=== PATIENT | female | born 1975 | race Caucasian/White ===

== ENCOUNTER 2021-07-08 14:10 | Outpatient (CLI) | payer OTHER, SELFPAY ==
--- NOTE | 2021-07-08 14:30 | ECG_ITS ---
Measurements Intervals Ridge Rate: 81 P: 53 KS: 143 QRS: 28 QRSD: 85 T: 35 QT: 359 QTc: 419 Interpretive Statements SINUS RHYTHM BASELINE ARTIFACT- I, II, III, AVR, AVL, AVF NORMAL ECG Electronically Signed On 07-08-2021 14:29:37 CDT by Butch Schmidt D.O.
[2021-07-08 14:44] LABS: Hemoglobin 13.3 g/dL (12.0-15.0)
[2021-07-08 14:57] LABS: Anion Gap 11 mmol/L (8-16); Blood Urea Nitrogen 11 mg/dL (7-17); Calcium 9.9 mg/dL (8.4-10.2); Carbon Dioxide 26 mmol/L (22-30); Chloride 101 mmol/L (98-107); Estimated Glomerular Filt Rate > 60; Glucose 115 mg/dL (65-110); Potassium 4.1 mmol/L (3.4-5.0); Sodium 138 mmol/L (137-145)
== END 2021-07-08 14:11 | disposition home or self-care (01) ==
LOC: ANHSURGERY 14:13
PROVIDERS: Anesthesiology; PCP Nurse Practitioner Family; Visit Provider Obstetrics & Gynecology
DX: Z01.818 Encounter for other preprocedural examination (principal); E78.5 Hyperlipidemia, unspecified; I10 Essential (primary) hypertension; D64.9 Anemia, unspecified
CPT/HCPCS: 36415; 80048; 85014; 85018; 93005

== ENCOUNTER 2021-07-11 00:17 | Day surgery (SDC) | payer OTHER, SELFPAY ==
[2021-07-06 13:20] VITALS: BMI 40.1
--- NOTE | 2021-07-08 14:09 | PM.IMHP ---
H&P: HPI History of Present Illness Date/Time: 07/08/21 14:09 periods have been lasting 2 weeks to 2 months for past year or so. She has cramping but no other pelvic pain. h/o anemia but no blood transfusions. Not sexually active Chief Complaint: Menometrorrhagia, fibroids Review of Systems Review of Systems: All systems reviewed & are unremarkable except as noted in HPI and below PMFSH Past Medical History Medical History Anxiety Asthma Diabetes mellitus Type 2 Hypertension Hypothyroidism Surgical History Surgical History H/O right wrist surgery 07/2020, carpal tunnel surgery History of tonsillectomy and adenoidectomy Family History Family History Father Hypertension Diabetes mellitus Mother Diabetes mellitus Hypertension Social History Social History Smoking packs per day: 0.5 Smoking cigarettes per day: 10.0 Years smoked: 24 Smoking pack-years: 12.00 Smoking status: Current every day smoker Tobacco type: cigarettes Alcohol intake: never Substance use: never Substance use type: does not use Spiritual care concerns: No Meds Home Medications and Allergies Home Medications Medication Instructions Recorded Confirmed Type albuterol sulfate 90 mcg/actuation 1 puff INHALATION Q4H PRN 05/25/21 07/06/21 History aerosol inhaler amlodipine 10 mg tablet 10 mg PO DAILY 05/25/21 07/06/21 History aspirin 81 mg tablet,delayed 81 mg PO DAILY 05/25/21 07/06/21 History release cholecalciferol (vitamin D3) 125 125 mcg PO DAILY 05/25/21 07/06/21 History mcg (5,000 unit) capsule empagliflozin 10 mg tablet 10 mg PO DAILY 05/25/21 07/06/21 History ferrous sulfate 325 mg (65 mg 325 mg PO DAILY 05/25/21 07/06/21 History iron) tablet glimepiride 4 mg tablet 4 mg PO QAM 05/25/21 07/06/21 History ibuprofen 800 mg tablet 800 mg PO Q8H PRN tablet 05/25/21 07/06/21 History levothyroxine 175 mcg capsule 175 mcg PO DAILY 05/25/21 07/06/21 History loratadine 10 mg capsule 10 mg PO DAILY 05/25/21 07/06/21 History losartan 50 mg tablet 50 mg PO DAILY 05/25/21 07/06/21 History meloxicam 15 mg tablet 15 mg PO DAILY 05/25/21 07/06/21 History metformin 1,000 mg tablet 1,000 mg PO BID 05/25/21 07/06/21 History norethindrone (contraceptive) 0.35 0.35 mg PO DAILY #84 tablet 05/25/21 07/06/21 Rx mg tablet omeprazole 40 mg capsule,delayed 40 mg PO DAILY 05/25/21 07/06/21 History release tizanidine 2 mg capsule 4 mg PO QHS 05/25/21 07/06/21 History venlafaxine 37.5 mg tablet 37.5 mg PO DAILY 05/25/21 07/06/21 History oxygen-air delivery systems 06/30/21 07/06/21 History hydroxyzine pamoate 50 mg PO HS 07/06/21 07/06/21 History pravastatin 20 mg PO HS 07/06/21 07/06/21 History Allergies Allergy/AdvReac Type Severity Reaction Status Date / Time lisinopril AdvReac Intermediate dry cough Verified 07/06/21 13:19 codeine AdvReac Mild upset Verified 07/06/21 13:19 stomach hydrocodone AdvReac Mild NAUSEA, Verified 07/06/21 13:19 upset stomach tramadol AdvReac upset Verified 07/06/21 13:19 stomach Exam Const: General: healthy appearing, no acute distress, alert and awake Resp: Auscultation: clear to auscultation bilaterally Cardio: Rate: regular rate Rhythm: regular rhythm GI: Inspection: non-distended GI Palp: Yes Soft to palpation and No Tenderness to palpation present (GI) : Bimanual exam- vagina & uterus: normal bimanual exam, uterine size normal, uterine mobility normal, non-tender and soft Bimanual Exam- Adnexa, other: normal adnexae, no masses and No adnexal tenderness Extrem: General: no pedal edema and no calf tenderness Psych: Mental Status: mental status grossly normal Assessment and Plan Assessment
[2021-07-11] VITALS (15 sets, daily range): BP systolic 95–136; BP diastolic 57–89; PULSE 72–95; RESP 11–20; TEMP 36.5–36.7; O2SAT 90–100
[2021-07-11] MEDS: ACETAMINOPHEN 500 MG TABLET 1000 MG PO (10:27)
[2021-07-11] MEDS: LACTATED RINGERS 1,000 ML 30 ML IV CONT ×2 (10:34→13:45)
[2021-07-11] MEDS: KETOROLAC 15 MG/ML VIAL (*BKC) IV PUSH (10:35)
[2021-07-11 10:42] LABS: Glucose Point of Care 132 mg/dl (65-105)
--- NOTE | 2021-07-11 11:00 | WPDANESEPPF ---
Anes - Initial Pre Proc Eval Procedure: Operation Date: 07/11/21 12:00 Proposed Procedures p Total Laparoscopic Hysterectomy - Kelly Johnson MD Date/Time: 07/11/21 11:00 Surgeon: Kelly Johnson MD Pre Op Diagnosis: Menometrorrhagia,Fibroids, Patient Data Age: 46 Gender: F Height: 1.63 m Weight: 103.8 kg Last Vital Signs Temp 36.6 C 07/11/21 10:14 Pulse 94 07/11/21 10:14 Resp 16 07/11/21 10:14 BP 131/74 07/11/21 10:14 Pulse Ox 100 07/11/21 10:14 Allergies Allergy/AdvReac Type Severity Reaction Status Date / Time lisinopril AdvReac Intermediate dry cough Verified 07/06/21 13:19 codeine AdvReac Mild Vomiting Verified 07/11/21 10:19 hydrocodone AdvReac Mild NAUSEA, Verified 07/06/21 13:19 upset stomach tramadol AdvReac Mild Vomiting Verified 07/11/21 10:19 Home Medications Medication Instructions Recorded Confirmed Type albuterol sulfate 90 mcg/actuation 1 puff INHALATION Q4H PRN 05/25/21 07/11/21 History aerosol inhaler amlodipine 10 mg tablet 10 mg PO DAILY 05/25/21 07/11/21 History aspirin 81 mg tablet,delayed 81 mg PO DAILY 05/25/21 07/11/21 History release cholecalciferol (vitamin D3) 125 125 mcg PO DAILY 05/25/21 07/11/21 History mcg (5,000 unit) capsule empagliflozin 10 mg tablet 10 mg PO DAILY 05/25/21 07/11/21 History ferrous sulfate 325 mg (65 mg 325 mg PO DAILY 05/25/21 07/11/21 History iron) tablet glimepiride 4 mg tablet 4 mg PO QAM 05/25/21 07/11/21 History ibuprofen 800 mg tablet 800 mg PO Q8H PRN tablet 05/25/21 07/11/21 History levothyroxine 175 mcg capsule 175 mcg PO DAILY 05/25/21 07/11/21 History loratadine 10 mg capsule 10 mg PO DAILY 05/25/21 07/11/21 History losartan 50 mg tablet 50 mg PO DAILY 05/25/21 07/11/21 History meloxicam 15 mg tablet 15 mg PO DAILY 05/25/21 07/11/21 History metformin 1,000 mg tablet 1,000 mg PO BID 05/25/21 07/11/21 History norethindrone (contraceptive) 0.35 0.35 mg PO DAILY #84 tablet 05/25/21 07/11/21 Rx mg tablet omeprazole 40 mg capsule,delayed 40 mg PO DAILY 05/25/21 07/11/21 History release tizanidine 2 mg capsule 4 mg PO QHS 05/25/21 07/11/21 History venlafaxine 37.5 mg tablet 37.5 mg PO DAILY 05/25/21 07/11/21 History oxygen-air delivery systems 06/30/21 07/06/21 History hydroxyzine pamoate 50 mg PO HS 07/06/21 07/11/21 History pravastatin 20 mg PO HS 07/06/21 07/11/21 History Laboratory Tests 07/11/21 10:38 POC Capillary Glucose 132 mg/dl H mg/dl (65-105) Patient hx anesthesia problems: none Family hx anesthesia problems: none Results Review: All pre-operative results and documents have been reviewed as part of the pre-operative evaluation. [facility] Past Medical History Medical History Anxiety Asthma Diabetes mellitus Type 2 Hypertension Hypothyroidism Surgical History Surgical History H/O right wrist surgery 07/2020, carpal tunnel surgery History of tonsillectomy and adenoidectomy Family History Family History Father Hypertension Diabetes mellitus Mother Diabetes mellitus Hypertension Social History Social History Smoking packs per day: 0.5 Smoking cigarettes per day: 10.0 Years smoked: 24 Smoking pack-years: 12.00 Smoking status: Current every day smoker Tobacco type: cigarettes Alcohol intake: never Substance use: never Substance use type: does not use Living arrangements: with family Spiritual care concerns: No Anes - Eval Final PreProcedure Day of Procedure 07/11/21 11:00 Patient weight: obese Heart: regular rate and rhythm Lungs: clear to auscultation Airway: Mallampati scale class II and special considerations poor dentition Neurological: alert and oriented Last oral intake: >/= 8 hours ASA classificatio
--- NOTE | 2021-07-11 11:43 | WPDHPUPDATE1 ---
History and Physical Update Update Date/Time: 07/11/21 11:43 History and Physical has been reviewed, including an updated exam of the patient. There are NO changes in the patient's condition. Risks, benefits, and alternatives have been discussed and questions answered. Patient agrees to proceed with procedure.
[2021-07-11] MEDS: ceFAZolin 2 GM/D5W 50 ML 2 GM/50 ML BAG IVPB (11:56)
--- NOTE | 2021-07-11 12:01 | W.PM.PROC2 ---
Procedure Note - Detailed Date of Procedure 07/11/21 Pre-op Diagnosis Menometrorrhagia,Fibroids, Post-op Diagnosis same Procedure Performed TLH, bilateral salpingectomy Surgeon Kelly Johnson MD Anesthesia general Indications Heavy irregular periods and fibroids Findings enlarged uterus, normal fallopian tubes, ovaries, liver, appendix Description of Procedure She was taken to the operating room where general anesthesia was obtained. She was prepared and draped in the normal sterile fashion in the dorsal lithotomy position. Marcaine was injected infraumbilically. A 5 mm skin incision was made in the infraumbilical fold. A 5 mm non bladed trocar was placed with the camera in the trocar under direct visualization. Insufflation was begun. She was placed in Trendelenburg. An 11 mm trocar was then placed in the right lower quadrant under direct visualization, and a 5 mm trocar in the left lower quadrant. Inspection of the pelvis revealed the findings as noted above. The right fallopian tube was grasped for stabilization. The mesosalpinx was serially clamped, transected with the Harmonic scalpel. The utero-ovarian ligament was then divided. The round ligament was then divided on the right side. The bladder flap was then created from the right side. The uterine artery was skeletonized. Attention was then turned to the left side. The mesial salpinx was serially clamped and transected, as was the utero-ovarian ligament and round ligament. The bladder flap was then created from the left, meeting the flap from the right. The bladder was further pushed down further with a laparoscopic Kittner. The bladder flap was created further with sharp dissection hugging against the cervix. The left uterine artery was then skeletonized, clamped, coagulated, and transected using the Harmonic scalpel excellent hemostasis visualized. Another couple bites were taken down the broad ligament to the level of the uterosacral ligament had been reached. The right uterine artery was then clamped, coagulated, and transected with excellent hemostasis visualized. Another few bites were taken down the broad ligament to the level of the uterosacral ligament had been reached. Both uterosacral ligaments were then divided. A sponge stick was placed in the vagina and pressed against the anterior cul-de-sac. An anterior colpotomy incision was made against the sponge stick with Harmonic scalpel. The vagina was then circumferentially incised with hugging against the cervix. The cervix and uterus were pressed down as far as possible into the vaginal canal. Attention was then turned to the vagina. A speculum was placed. The cervix was grasped with single-tooth tenaculum. Gentle traction was applied. The uterus and fallopian tubes were easily brought through the vagina. A moist blue towel was placed in the vagina to help hold the pneumoperitoneum. Attention was then turned back to the abdomen. All operative sites were noted to be hemostatic. The vaginal cuff was reapproximated using 0 Vicryl interrupted sutures. A total of 4 sutures were used for reapproximation. The pelvis was well irrigated. All operative sites were still found to be hemostatic. The right lower quadrant trocar was removed. The Mejia-Ming device was used along with an 0 Vicryl to close the fascia of the right lower quadrant incision. The pneumoperitoneum was allowed to escape. All trocars were removed. All skin incisions were closed using 4 0 Monocryl in subcuticular fashion. She tolerated the procedure well. Sponge, lap, needle, and instrument counts were correct x2. She was taken to the recovery room in stable condition. Estimated Blood Loss 25 Drains Yes (Birch) Packing No Pathology yes Complications No immediate complications Condition stable Disposition PACU
[2021-07-11] MEDS: BUPIVACAINE HCL 0.5% PF 30 ML VIAL INFILTRATE (13:03)
[2021-07-11] MEDS: fentaNYL CITRATE INJ (*CRX) 100 MCG/2 ML VIAL 25 MCG IV PUSH (14:36)
[2021-07-11 14:51] LABS: Glucose Point of Care 170 mg/dl (65-105)
--- NOTE | 2021-07-11 16:20 | PC.NURSE ---
This patient, Tete Sanchez, was received from PACU on 07/11/21 at 1620. Patient/family oriented to unit policies and routines
[2021-07-11] MEDS: LACTATED RINGERS 1,000 ML 125 ML IV CONT (16:50)
[2021-07-11] MEDS: KETOROLAC 30 MG/ML VIAL (*BKC) IV PUSH ×2 (16:50→23:00)
[2021-07-11 19:17] LABS: Hematocrit 42.5 % (37.0-47.0); Hemoglobin 13.5 g/dL (12.0-15.0); Mean Corpuscular HGB Conc 31.8 g/dl (32-36); Mean Corpuscular Volume 91.4 fl (80-100); Platelet Count Result 298 k/mm3 (150-375); Red Blood Count 4.65 M/mm3 (4.2-5.4); Red Cell Distribution Width 14.2 % (11.5-14.5); White Blood Count 16.1 K/mm3 (4.5-10.0)
[2021-07-11 19:27] LABS: Anion Gap 10 mmol/L (8-16); Blood Urea Nitrogen 12 mg/dL (7-17); Calcium 9.1 mg/dL (8.4-10.2); Carbon Dioxide 23 mmol/L (22-30); Chloride 99 mmol/L (98-107); Estimated CRCL calculation 92 ml/min; Estimated Glomerular Filt Rate > 60; Glucose 249 mg/dL (65-110); Potassium 4.3 mmol/L (3.4-5.0); Sodium 132 mmol/L (137-145)
[2021-07-11 19:37] LABS: Band Neutrophils Percent 2 % (0-6); Hypochromasia 1+ (NORMAL); Lymphocytes Absolute Manual 0.32 K/mm3 (1.1-4.5); Monocytes Absolute Manual 0.16 K/mm3 (0.1-0.90); Monocytes Percent Manual 1 % (3-9); Neutrophils Absolute Manual 15.61 K/mm3 (1.7-7.2); Neutrophils Percent Manual 95 % (46-73); Platelet Estimate Adequate (Adequate); Total Cells Counted 100
[2021-07-11] MEDS: PRAVASTATIN SODIUM 20 MG TABLET PO (20:45)
[2021-07-11] MEDS: TIZANIDINE HCL 4 MG TABLET PO (20:45)
[2021-07-11] MEDS: ENOXAPARIN 40 MG/0.4 ML SYRINGE SUB-Q (20:45)
[2021-07-11] MEDS: hydrOXYzine pamoate 25 MG CAPSULE 50 MG PO (20:45)
[2021-07-11] MEDS: metFORMIN HCL 500 MG TABLET 1000 MG PO (20:55)
[2021-07-12 00:03] VITALS: BP 111/54; PULSE 87; RESP 18; TEMP 35.9; O2SAT 94
[2021-07-12 01:00] VITALS: RESP 18
[2021-07-12 05:00] VITALS: BP 117/70; PULSE 90; RESP 18; TEMP 36.8; O2SAT 95
[2021-07-12] MEDS: IBUPROFEN 600 MG TABLET PO (05:59)
--- NOTE | 2021-07-12 07:19 | WPDANESPN ---
Anes - Prog Note Post-Op Date/Time: 07/12/21 07:19 Cardiovascular status: normal Respiratory status: normal Airway patency: baseline Mental status: baseline Post-Op hydration status: normal Vital Signs: Last Vital Signs Temp 36.8 C 07/12/21 05:00 Pulse 90 07/12/21 05:00 Resp 18 07/12/21 05:00 BP 117/70 07/12/21 05:00 Pulse Ox 95 07/12/21 05:00 Pain Score (VAS): 09/26 I/O: Intake & Output 07/11/21 07/11/21 07/12/21 15:59 23:59 07:59 Intake Total 50 200 600 Output Total 1575 Balance 50 200 -975 Laboratory Tests 07/11/21 18:57 07/11/21 18:57 07/11/21 07/11/21 07/11/21 10:38 14:49 18:57 WBC RBC Hgb Hct MCV MCH MCHC RDW Plt Count MPV Immature Gran % (Auto) Neut % (Auto) Lymph % (Auto) Mason % (Auto) Eos % (Auto) Baso % (Auto) Lymph # (Auto) Mason # (Auto) Eos # (Auto) Baso # (Auto) Abs Immat Gran (auto) Absolute Neuts (auto) Absolute Nucleated RBC Total Counted Neutrophils % (Manual) Band Neutrophils % Lymphocytes % (Manual) Monocytes % (Manual) Nucleated RBC % Abs Neuts (Manual) Abs Lymphs (Manual) Abs Monocytes (Manual) Platelet Estimate Hypochromasia Sodium 132 L Potassium 4.3 Chloride 99 Carbon Dioxide 23 Anion Gap 10 BUN 12 Creatinine 0.80 Estim Creat Clear Calc 92 Estimated GFR > 60 Glucose 249 H POC Capillary Glucose 132 H 170 H Calcium 9.1 07/11/21 18:57 WBC 16.1 H RBC 4.65 Hgb 13.5 Hct 42.5 MCV 91.4 MCH 29.0 MCHC 31.8 L RDW 14.2 Plt Count 298 MPV 9.0 Immature Gran % (Auto) Not Reportable Neut % (Auto) Not Reportable Lymph % (Auto) Not Reportable Mason % (Auto) Not Reportable Eos % (Auto) Not Reportable Baso % (Auto) Not Reportable Lymph # (Auto) Not Reportable Mason # (Auto) Not Reportable Eos # (Auto) Not Reportable Baso # (Auto) Not Reportable Abs Immat Gran (auto) Not Reportable Absolute Neuts (auto) Not Reportable Absolute Nucleated RBC Not Reportable Total Counted 100 Neutrophils % (Manual) 95 H Band Neutrophils % 2 Lymphocytes % (Manual) 2.0 L Monocytes % (Manual) 1 L Nucleated RBC % Not Reportable Abs Neuts (Manual) 15.61 H Abs Lymphs (Manual) 0.32 L Abs Monocytes (Manual) 0.16 Platelet Estimate Adequate Hypochromasia 1+ Sodium Potassium Chloride Carbon Dioxide Anion Gap BUN Creatinine Estim Creat Clear Calc Estimated GFR Glucose POC Capillary Glucose Calcium Post-procedural complaints: none Patient Feedback: Patient satisfied with anesthetic care.
--- NOTE | 2021-07-12 07:30 | WPDANESPN ---
Anes - Prog Note Post-Op Date/Time: 07/12/21 07:30 Cardiovascular status: normal Respiratory status: normal Airway patency: baseline Mental status: baseline Post-Op hydration status: normal Vital Signs: Last Vital Signs Temp 36.8 C 07/12/21 05:00 Pulse 90 07/12/21 05:00 Resp 18 07/12/21 05:00 BP 117/70 07/12/21 05:00 Pulse Ox 95 07/12/21 05:00 Pain Score (VAS): 3 I/O: Intake & Output 07/11/21 07/11/21 07/12/21 15:59 23:59 07:59 Intake Total 50 200 600 Output Total 1575 Balance 50 200 -975 Laboratory Tests 07/11/21 18:57 07/11/21 18:57 07/11/21 07/11/21 07/11/21 10:38 14:49 18:57 WBC RBC Hgb Hct MCV MCH MCHC RDW Plt Count MPV Immature Gran % (Auto) Neut % (Auto) Lymph % (Auto) Nobles % (Auto) Eos % (Auto) Baso % (Auto) Lymph # (Auto) Nobles # (Auto) Eos # (Auto) Baso # (Auto) Abs Immat Gran (auto) Absolute Neuts (auto) Absolute Nucleated RBC Total Counted Neutrophils % (Manual) Band Neutrophils % Lymphocytes % (Manual) Monocytes % (Manual) Nucleated RBC % Abs Neuts (Manual) Abs Lymphs (Manual) Abs Monocytes (Manual) Platelet Estimate Hypochromasia Sodium 132 L Potassium 4.3 Chloride 99 Carbon Dioxide 23 Anion Gap 10 BUN 12 Creatinine 0.80 Estim Creat Clear Calc 92 Estimated GFR > 60 Glucose 249 H POC Capillary Glucose 132 H 170 H Calcium 9.1 07/11/21 18:57 WBC 16.1 H RBC 4.65 Hgb 13.5 Hct 42.5 MCV 91.4 MCH 29.0 MCHC 31.8 L RDW 14.2 Plt Count 298 MPV 9.0 Immature Gran % (Auto) Not Reportable Neut % (Auto) Not Reportable Lymph % (Auto) Not Reportable Nobles % (Auto) Not Reportable Eos % (Auto) Not Reportable Baso % (Auto) Not Reportable Lymph # (Auto) Not Reportable Nobles # (Auto) Not Reportable Eos # (Auto) Not Reportable Baso # (Auto) Not Reportable Abs Immat Gran (auto) Not Reportable Absolute Neuts (auto) Not Reportable Absolute Nucleated RBC Not Reportable Total Counted 100 Neutrophils % (Manual) 95 H Band Neutrophils % 2 Lymphocytes % (Manual) 2.0 L Monocytes % (Manual) 1 L Nucleated RBC % Not Reportable Abs Neuts (Manual) 15.61 H Abs Lymphs (Manual) 0.32 L Abs Monocytes (Manual) 0.16 Platelet Estimate Adequate Hypochromasia 1+ Sodium Potassium Chloride Carbon Dioxide Anion Gap BUN Creatinine Estim Creat Clear Calc Estimated GFR Glucose POC Capillary Glucose Calcium Post-procedural complaints: none Patient Feedback: Patient satisfied with anesthetic care.
--- NOTE | 2021-07-12 07:40 | PM.GYNPNOP ---
LIFT SUPERVISOR - A/P Postoperative Procedures: Procedures Operation Date: 07/11/21 12:00 Actual Procedure Side Surgeon p Total Laparoscopic Hysterectomy with Bilateral Salpingectomy Bilateral Kelly Johnson MD Postoperative day: 1 (s/p hysterectomy) Postoperative status: doing well Postoperative plan: routine post-op care, discharge (and follow up in office in 1 week) and other (We discussed her severely elevated blood sugars (249 and 298) and need for stricter control to avoid postoperative complications. I advised following her diet strictly and seeing her PCP for possible change in management) Time Spent With Patient Time: Total time spent is greater than 50% in coordination of care (as documented) at patient's floor/unit and/or counseling patient: Time with patient: less than 15 minutes LIFT SUPERVISOR- PN:Subj Post-Op Subjective Date/time seen: 07/12/21 07:40 Subjective: patient has no complaints, pain is well controlled and other (Tolerating regular diet. + flatus. Voiding without problems) Exam Const: General: no acute distress Resp: Auscultation: clear to auscultation bilaterally Cardio: Rate: regular rate Rhythm: regular rhythm GI: Inspection: non-distended and incision (Intact without erythema, drainage, or induration) GI Palp: Yes abdominal tenderness (appropriate) and Yes Soft to palpation Extrem: General: no edema LIFT SUPERVISOR - PN: Obj Data Vital Signs Vital Signs: Vital Signs - 24 hr 07/11/21 10:14 07/11/21 13:45 07/11/21 14:00 Temperature 36.6 C 36.5 C Pulse Rate 94 72 77 Respiratory Rate 16 11 L 16 Blood Pressure 131/74 95/57 L 114/83 Pulse Oximetry 100 90 92 07/11/21 14:15 07/11/21 14:30 07/11/21 14:45 Temperature Pulse Rate 82 83 86 Respiratory Rate 14 14 13 Blood Pressure 130/75 136/87 134/70 Pulse Oximetry 95 93 92 07/11/21 15:00 07/11/21 15:05 07/11/21 15:15 Temperature Pulse Rate 81 83 87 Respiratory Rate 16 16 16 Blood Pressure 123/80 121/74 Pulse Oximetry 92 94 07/11/21 15:30 07/11/21 15:45 07/11/21 16:00 Temperature Pulse Rate 91 92 91 Respiratory Rate 19 14 19 Blood Pressure 122/73 135/77 136/80 Pulse Oximetry 94 96 96 07/11/21 16:10 07/11/21 16:30 07/11/21 20:00 Temperature 36.7 C 36.6 C Pulse Rate 95 93 88 Respiratory Rate 13 16 20 Blood Pressure 133/89 120/67 108/78 Pulse Oximetry 95 92 95 07/12/21 00:03 07/12/21 01:00 07/12/21 05:00 Temperature 35.9 C L 36.8 C Pulse Rate 87 90 Respiratory Rate 18 18 18 Blood Pressure 111/54 L 117/70 Pulse Oximetry 94 95 Intake/Output Intake/Output: Intake & Output 07/09/21 07/10/21 07/11/21 07/12/21 23:59 23:59 23:59 23:59 Intake Total 250 600 Output Total 1575 Balance 250 -975 Meds/Results Medications: Active Medications Generic Name Dose Route Start Last Admin Trade Name Freq PRN Reason Stop Dose Admin Albuterol 1 puff 07/11/21 16:12 Albuterol Sulfate (*Sp) Aerosol 1 Puff INHALATION Q4HRT PRN Bronchospasm Amlodipine Besylate 10 mg 07/12/21 09:00 Amlodipine Besylate 5 Mg Tablet PO DAILY [facility] Aspirin 81 mg 07/12/21 09:00 Aspirin 81 Mg Enteric Tablet PO DAILY [facility] Enoxaparin Sodium 40 mg 07/11/21 20:00 07/11/21 20:45 Enoxaparin 40 Mg/0.4 Ml Syringe SUB-Q 40 mg DAILY@2000 CHANDRIKA Administration Ferrous Sulfate 324 mg 07/12/21 09:00 Ferrous Sulfate 324 Mg Tablet PO DAILY [facility] Glimepiride 4 mg 07/12/21 08:00 Glimepiride 2 Mg Tablet PO DAILY@0800 [facility] Hydroxyzine Pamoate 50 mg 07/11/21 21:00 07/11/21 20:45 Hydroxyzine Pamoate 25 Mg Capsule PO 50 mg HS CHANDRIKA Administration Lactated Ringer's 1,000 mls @ 125 mls/hr 07/11/21 16:12 07/11/21 16:50 Lr - Lactated Ringers Iv IV CONT 125 mls/hr .Q8H CHANDRIKA Administration Ibuprofen 600 mg 07/11/21 16:12 07/12/21 05:59 Ibuprofen 600 Mg Tablet PO 600 mg Q6H PRN Administration Cramping Ketorolac Tromethamine 30 mg 07/11/21 16:12 07/11/21 23:00
--- NOTE | 2021-07-12 07:42 | PM.DS ---
DS: Admitting Diagnosis Discharge Date 07/12/2021 Admitting Diagnosis Menometrorrhagia, fibroids DS: Discharge Diagnosis Discharge Diagnosis (1) Menometrorrhagia: Code(s): N92.1 - Excessive and frequent menstruation with irregular cycle Status: Acute (2) Leiomyoma: Code(s): D21.9 - Benign neoplasm of connective and other soft tissue, unspecified Status: Acute (3) Diabetes mellitus: Code(s): E11.9 - Type 2 diabetes mellitus without complications Status: Inactive DS: Summary Hospital Course Hospital Course: She was admitted on July 11 for a planned laparoscopic hysterectomy. She had a total laparoscopic hysterectomy with bilateral salpingectomy on July 11. No complications occurred during surgery. Her postoperative course has also been uneventful. She is meeting all postoperative milestones and expresses the desire to be discharged home today. She has had some significantly elevated blood sugars with known type 2 diabetes. I am 2 of her values have been 249 and 298, so we discussed the importance of diabetic control in the postoperative. In order to avoid complications related to her incisions and infections. I advised her to try to follow her diabetic diet strictly as possible and make a follow-up appointment in the near future with her primary care physician for management. She expressed understanding and will be discharged home with the follow-up and medications as listed. Time Spent with Patient Time attestation: Total time spent providing and/or coordinating discharge services: DS: Data Data Completed and Pending Pending studies at discharge: Pending at discharge 07/11/21 13:12 Surgical [PTH] Routine Labs on day of discharge: Labs from last 24 hours 07/11/21 07/11/21 07/11/21 18:57 18:57 14:49 WBC 16.1 H RBC 4.65 Hgb 13.5 Hct 42.5 MCV 91.4 MCH 29.0 MCHC 31.8 L RDW 14.2 Plt Count 298 MPV 9.0 Immature Gran % (Auto) Not Reportable Neut % (Auto) Not Reportable Lymph % (Auto) Not Reportable Cherry % (Auto) Not Reportable Eos % (Auto) Not Reportable Baso % (Auto) Not Reportable Lymph # (Auto) Not Reportable Cherry # (Auto) Not Reportable Eos # (Auto) Not Reportable Baso # (Auto) Not Reportable Abs Immat Gran (auto) Not Reportable Absolute Neuts (auto) Not Reportable Absolute Nucleated RBC Not Reportable Total Counted 100 Neutrophils % (Manual) 95 H Band Neutrophils % 2 Lymphocytes % (Manual) 2.0 L Monocytes % (Manual) 1 L Nucleated RBC % Not Reportable Abs Neuts (Manual) 15.61 H Abs Lymphs (Manual) 0.32 L Abs Monocytes (Manual) 0.16 Platelet Estimate Adequate Hypochromasia 1+ Sodium 132 L Potassium 4.3 Chloride 99 Carbon Dioxide 23 Anion Gap 10 BUN 12 Creatinine 0.80 Estim Creat Clear Calc 92 Estimated GFR > 60 Glucose 249 H POC Capillary Glucose 170 H Calcium 9.1 07/11/21 10:38 WBC RBC Hgb Hct MCV MCH MCHC RDW Plt Count MPV Immature Gran % (Auto) Neut % (Auto) Lymph % (Auto) Cherry % (Auto) Eos % (Auto) Baso % (Auto) Lymph # (Auto) Cherry # (Auto) Eos # (Auto) Baso # (Auto) Abs Immat Gran (auto) Absolute Neuts (auto) Absolute Nucleated RBC Total Counted Neutrophils % (Manual) Band Neutrophils % Lymphocytes % (Manual) Monocytes % (Manual) Nucleated RBC % Abs Neuts (Manual) Abs Lymphs (Manual) Abs Monocytes (Manual) Platelet Estimate Hypochromasia Sodium Potassium Chloride Carbon Dioxide Anion Gap BUN Creatinine Estim Creat Clear Calc Estimated GFR Glucose POC Capillary Glucose 132 H Calcium Discharge Plan Discharge Patient Disposition: Home, Self-Care Patient Instructions: Laparoscopic Hysterectomy (DC) Follow-up/Referrals: Kelly Johnson MD [Physician] - 1 Week Discharge Medications: New ibuprofen 800 mg tablet
[2021-07-12] MEDS: CHOLECALCIFEROL 1,000 UNITS TABLET 5000 UNITS PO (08:54)
[2021-07-12] MEDS: amLODIPine BESYLATE 5 MG TABLET 10 MG PO (08:55)
[2021-07-12] MEDS: LOSARTAN POTASSIUM 50 MG TABLET PO (08:56)
[2021-07-12] MEDS: GLIMEPIRIDE 2 MG TABLET 4 MG PO (08:59)
[2021-07-12] MEDS: LEVOTHYROXINE SODIUM 150 MCG TABLET PO (08:59)
[2021-07-12] MEDS: metFORMIN HCL 500 MG TABLET 1000 MG PO (09:00)
[2021-07-12] MEDS: VENLAFAXINE HCL 37.5 MG TABLET PO (09:01)
[2021-07-12] MEDS: FERROUS SULFATE 324 MG TABLET PO (09:02)
[2021-07-12] MEDS: PANTOPRAZOLE 40 MG TABLET PO (09:03)
[2021-07-12] MEDS: ASPIRIN 81 MG ENTERIC TABLET PO (09:05)
[2021-07-12] MEDS: LEVOTHYROXINE SODIUM 25 MCG TABLET PO (09:05)
[2021-07-12] MEDS: LORATADINE 10 MG TABLET PO (09:07)
[2021-07-12 10:46] VITALS: BP 106/72; PULSE 62; RESP 18; TEMP 36.8; O2SAT 95
== END 2021-07-12 10:45 | disposition home or self-care (01) ==
LOC: ANHSURGERY 09:46 → ANHOB2 16:17
PROVIDERS: PCP Nurse Practitioner Family; Visit Provider Obstetrics & Gynecology
PROC: 0UT9FZZ Resection of Uterus, Via Natural or Artificial Opening With Percutaneous Endoscopic Assistance (ICD-10-PCS; CPT 58571; principal; 2021-07-11 12:00)
DX: N92.1 Excessive and frequent menstruation with irregular cycle (principal); D25.1 Intramural leiomyoma of uterus; N73.6 Female pelvic peritoneal adhesions (postinfective); E11.9 Type 2 diabetes mellitus without complications; I10 Essential (primary) hypertension; E03.9 Hypothyroidism, unspecified; J45.909 Unspecified asthma, uncomplicated; F41.9 Anxiety disorder, unspecified; F17.210 Nicotine dependence, cigarettes, uncomplicated; Z79.51 Long term (current) use of inhaled steroids; Z79.82 Long term (current) use of aspirin; Z79.84 Long term (current) use of oral hypoglycemic drugs; E66.9 Obesity, unspecified; Z68.39 Body mass index [BMI] 39.0-39.9, adult
CPT/HCPCS: 58571; 36415; 80048; 82948; 85025; 88307; 99199; A9270; J0690; J1100; J1650; J1885; J2250; J2405; J2704; J2710; J3010; J7030; J7120

== ENCOUNTER 2023-11-24 08:10 | Emergency (ER) | payer OTHER, SELFPAY ==
[2023-11-24 08:16] VITALS: BP 134/82; PULSE 75; RESP 20; TEMP 36.3; O2SAT 99
--- NOTE | 2023-11-24 08:32 | ED.EAR ---
HPI - Ear Problem General Chief complaint: Ear Stated complaint: ear pain running down neck Time Seen by Provider: 11/24/23 08:32 Source: patient, RN notes reviewed and old records reviewed Mode of arrival: ambulatory Limitations: no limitations History of Present Illness HPI Narrative: 48-year-old female who presents to [facility] with complaints of right ear pain radiating down into her right neck for the past 3 days. Patient reports that she first thought she had slept on her neck wrong, but pain has increased to her right ear for the past 2 days with radiation into her neck. Patient reports that she has been taking Tylenol and Ibuprofen for her discomfort. Patient reports some sinus drainage and some sore throat on the right side,denies any acute cough, no fevers chills or sweats reported. MD Complaint: ear pain Location: right ear Duration: constant Severity: moderate Discharge from ear: Reports no Associated symptoms ear: other (pain) Treatment prior to arrival: oral analgesic ( Tylenol and ibuprofen) Related Data Home Medications Medication Instructions Recorded Confirmed albuterol sulfate 90 mcg/actuation 1 puff inhalation Q4H PRN 05/25/21 11/24/23 aerosol inhaler Bronchospasm amlodipine 10 mg tablet 10 mg PO DAILY 05/25/21 11/24/23 aspirin 81 mg tablet,delayed 81 mg PO DAILY 05/25/21 11/24/23 release cholecalciferol (vitamin D3) 125 125 mcg PO DAILY 05/25/21 11/24/23 mcg (5,000 unit) capsule empagliflozin 10 mg tablet 10 mg PO DAILY 05/25/21 11/24/23 (Jardiance) glimepiride 4 mg tablet 4 mg PO QAM 05/25/21 11/24/23 levothyroxine 175 mcg capsule 175 mcg PO DAILY 05/25/21 11/24/23 loratadine 10 mg capsule 10 mg PO DAILY 05/25/21 11/24/23 losartan 50 mg tablet 50 mg PO DAILY 05/25/21 11/24/23 metformin 1,000 mg tablet 1,000 mg PO BID 05/25/21 11/24/23 tizanidine 2 mg capsule 4 mg PO QHS 05/25/21 11/24/23 venlafaxine 37.5 mg tablet 37.5 mg PO DAILY 05/25/21 11/24/23 oxygen-air delivery systems 06/30/21 11/15/21 hydroxyzine pamoate 50 mg capsule 50 mg PO HS 07/06/21 11/24/23 pravastatin 20 mg tablet 20 mg PO HS 07/06/21 11/24/23 dulaglutide 3 mg/0.5 mL 3 mg subcut WEEKLY 11/24/23 11/24/23 subcutaneous pen injector (Trulicity) Allergies Allergy/AdvReac Type Severity Reaction Status Date / Time lisinopril AdvReac Intermediate dry cough Verified 11/24/23 08:22 codeine AdvReac Mild Vomiting Verified 11/24/23 08:22 hydrocodone AdvReac Mild NAUSEA, Verified 11/24/23 08:22 upset stomach tramadol AdvReac Mild Vomiting Verified 11/24/23 08:22 Review of Systems Review of Systems: CONSTITUTIONAL: Denies malaise, chills, sweats, or fever. EYES: Denies visual changes, redness, or discharge. ENT: Reports rhinorrhea, congestion,no sinus pain,right otalgia and right sided sore throat. CARDIOVASCULAR: Denies chest pain, palpitations, or edema. RESPIRATORY: Reports no cough.? Denies dyspnea. GASTROINTESTINAL: Denies abdominal pain, nausea, vomiting, diarrhea SKIN: Denies rash or itching. MUSCULOSKELETAL: Denies myalgia. NEUROLOGIC: Denies headache. All systems reviewed & are unremarkable except as noted in HPI and below PMFSH Past Medical History Medical History Anxiety Asthma Diabetes mellitus Type 2 Hypertension Hypothyroidism Surgical History Surgical History H/O right wrist surgery 07/2020, carpal tunnel surgery History of bilateral salpingectomy 07/11/21 History of hysterectomy 07/11/21, [facility] History of tonsillectomy and adenoidectomy Family History Family History Father Hypertension Diabetes mellitus Mother Diabetes mellitus Hypertension Social History Social History Smoking packs per day: 0.5 Smoking cigarettes per day: 10.0 Yea
== END 2023-11-24 08:48 | disposition home or self-care (01) ==
PROVIDERS: Emergency Provider Registered Nurse; PCP Nurse Practitioner Family
DX: H66.91 Otitis media, unspecified, right ear (principal); F17.210 Nicotine dependence, cigarettes, uncomplicated; J45.909 Unspecified asthma, uncomplicated; E11.9 Type 2 diabetes mellitus without complications; I10 Essential (primary) hypertension; E03.9 Hypothyroidism, unspecified; F41.9 Anxiety disorder, unspecified; Z79.82 Long term (current) use of aspirin
CPT/HCPCS: 99213; G0463

== ENCOUNTER 2024-01-07 17:41 | Emergency (ER) | payer OTHER, SELFPAY ==
--- NOTE | 2024-01-07 17:56 | ED.BACK ---
HPI - Back Pain/Injury General Chief Complaint: Urogenital-Female Stated Complaint: Right Flank Pain Source: patient, RN notes reviewed and old records reviewed Mode of arrival: ambulatory Limitations: no limitations History of Present Illness HPI Narrative: 48 year female patient presents to [facility] with complaint of right flank pain,, urinary frequency, vaginal irritation, vaginal itching. Patient states vaginal itching vaginal irritation it has been going on for a while patient has appoint with her OBGYN tomorrow. The patient states flank pain just started today. Related Data Home Medications Medication Instructions Recorded Confirmed albuterol sulfate 90 mcg/actuation 1 puff inhalation Q4H PRN 05/25/21 01/07/24 aerosol inhaler Bronchospasm amlodipine 10 mg tablet 10 mg PO DAILY 05/25/21 01/07/24 aspirin 81 mg tablet,delayed 81 mg PO DAILY 05/25/21 01/07/24 release cholecalciferol (vitamin D3) 125 125 mcg PO DAILY 05/25/21 01/07/24 mcg (5,000 unit) capsule empagliflozin 10 mg tablet 10 mg PO DAILY 05/25/21 01/07/24 (Jardiance) glimepiride 4 mg tablet 4 mg PO QAM 05/25/21 01/07/24 levothyroxine 175 mcg capsule 175 mcg PO DAILY 05/25/21 01/07/24 loratadine 10 mg capsule 10 mg PO DAILY 05/25/21 01/07/24 losartan 50 mg tablet 50 mg PO DAILY 05/25/21 01/07/24 metformin 1,000 mg tablet 1,000 mg PO BID 05/25/21 01/07/24 tizanidine 2 mg capsule 4 mg PO QHS 05/25/21 01/07/24 venlafaxine 37.5 mg tablet 37.5 mg PO DAILY 05/25/21 01/07/24 oxygen-air delivery systems 06/30/21 01/07/24 hydroxyzine pamoate 50 mg capsule 50 mg PO HS 07/06/21 01/07/24 pravastatin 20 mg tablet 20 mg PO HS 07/06/21 01/07/24 dulaglutide 3 mg/0.5 mL 3 mg subcut WEEKLY 11/24/23 01/07/24 subcutaneous pen [facility] ([facility]) Allergies Allergy/AdvReac Type Severity Reaction Status Date / Time lisinopril AdvReac Intermediate dry cough Verified 01/07/24 18:00 codeine AdvReac Mild Vomiting Verified 01/07/24 18:00 hydrocodone AdvReac Mild NAUSEA, Verified 01/07/24 18:00 upset stomach tramadol AdvReac Mild Vomiting Verified 01/07/24 18:00 Review of Systems Constitutional: Constitutional: Reports no additional constitutional complaints, Denies body ache(s), Denies chills, Denies fatigue, Denies fever(s) and Denies headache(s) Eyes: Eyes: Reports no additional eye complaints and Denies blurry vision ENT: Reports system reviewed and no additional complaints, except as documented, Denies vertigo, Denies dizziness, Denies ear discharge, Denies otalgia, Denies facial pain, Denies headache(s), Denies nasal congestion, Denies nasal discharge, Denies sinus pain, Denies sinus pressure and Denies sore throat Cardiovascular: Cardiovascular: Reports no additional cardiovascular complaints, Denies chest pain, Denies chest pain at rest, Denies rapid heart rate and Denies dyspnea Respiratory: Respiratory: Reports no additional respiratory complaints, Denies chest congestion, Denies cough, Denies pain on inspiration, Denies pain with cough and Denies dyspnea Gastrointestinal: Gastrointestinal: Denies abdominal pain, Denies diarrhea, Denies nausea and Denies vomiting Genitourinary: Genitourinary: Reports nocturia, Reports dysuria and Reports vaginal pruritus Musculoskeletal: Musculoskeletal: Reports back pain Integumentary/Breasts: Skin/Breast: Denies rash Neurologic: Reports system reviewed and no additional complaints, except as documented, Denies vertigo, Denies dizziness and Denies headache(s) Endocrine: Endocrine: Denies fatigue PMFSH Past Medical History Medical History Anxiety Asthma Diabetes mellitus Type 2 Hypertension Hypothyroidism Surgical History Surgical History H/O right wrist surgery 07/2020, carpal tunnel surgery History of bilateral salpingectomy 07/11/21 History of hysterectomy 07/11/21, [facility] History
[2024-01-07 18:01] VITALS: BP 118/76; PULSE 76; RESP 18; TEMP 36.6; O2SAT 100
[2024-01-07 18:14] LABS: Glucose Point of Care 146 mg/dl (65-105)
== END 2024-01-07 18:27 | disposition home or self-care (01) ==
PROVIDERS: Emergency Provider Registered Nurse; PCP Nurse Practitioner Family
DX: S39.011A Strain of muscle, fascia and tendon of abdomen, initial encounter (principal); X58.XXXA Exposure to other specified factors, initial encounter
CPT/HCPCS: 81003; 82948; 99213; G0463

== ENCOUNTER 2024-04-25 16:55 | Emergency (ER) | payer OTHER, SELFPAY ==
--- NOTE | ~2024-04-25 | XR_ITS ---
XR hand RT min 3V Ordering provider: Vivi Jones APRN History: . 3RD DIGIT pain, decreased ROM . Comparison: None. FINDINGS: BONES: No acute fracture or dislocation. Old fracture in the ulnar styloid. JOINT SPACES: Normal. SOFT TISSUES: Normal. IMPRESSION: No acute osseous abnormality right hand. Reviewed, dictated and finalized at location A.
[2024-04-25 17:01] VITALS: BP 139/89; PULSE 81; RESP 16; TEMP 36.4; O2SAT 100
--- NOTE | 2024-04-25 17:08 | ED.GENADULT ---
HPI - General Adult General Chief complaint: Extremity Injury, Upper Stated complaint: Right Hand Injury Time Seen by Provider: 04/25/24 17:08 Source: patient Mode of arrival: ambulatory Limitations: no limitations History of Present Illness HPI narrative: 49 y/o female with a history of diabetes presents with complaints of right middle finger and hand pain. Onset today. She denies any trauma or overuse/ injury to the finger or hand. Reports pain with movement of the finger. She is able to move the rest of her fingers without difficulty or pain. She denies any numbness or tingling. Takes ibuprofen 1-2 times daily for back pain. Related Data Home Medications Medication Instructions Recorded Confirmed albuterol sulfate 90 mcg/actuation 1 puff inhalation Q4H PRN 05/25/21 01/07/24 aerosol inhaler Bronchospasm amlodipine 10 mg tablet 10 mg PO DAILY 05/25/21 01/07/24 aspirin 81 mg tablet,delayed 81 mg PO DAILY 05/25/21 01/07/24 release cholecalciferol (vitamin D3) 125 125 mcg PO DAILY 05/25/21 01/07/24 mcg (5,000 unit) capsule empagliflozin 10 mg tablet 10 mg PO DAILY 05/25/21 01/07/24 (Jardiance) glimepiride 4 mg tablet 4 mg PO QAM 05/25/21 01/07/24 levothyroxine 175 mcg capsule 175 mcg PO DAILY 05/25/21 01/07/24 loratadine 10 mg capsule 10 mg PO DAILY 05/25/21 01/07/24 losartan 50 mg tablet 50 mg PO DAILY 05/25/21 01/07/24 metformin 1,000 mg tablet 1,000 mg PO BID 05/25/21 01/07/24 tizanidine 2 mg capsule 4 mg PO QHS 05/25/21 01/07/24 venlafaxine 37.5 mg tablet 37.5 mg PO DAILY 05/25/21 01/07/24 oxygen-air delivery systems 06/30/21 01/07/24 hydroxyzine pamoate 50 mg capsule 50 mg PO HS 07/06/21 01/07/24 pravastatin 20 mg tablet 20 mg PO HS 07/06/21 01/07/24 dulaglutide 3 mg/0.5 mL 3 mg subcut WEEKLY 11/24/23 01/07/24 subcutaneous pen injector (Trulicity) Allergies Allergy/AdvReac Type Severity Reaction Status Date / Time lisinopril AdvReac Intermediate dry cough Verified 04/25/24 17:09 codeine AdvReac Mild Vomiting Verified 04/25/24 17:09 hydrocodone AdvReac Mild NAUSEA, Verified 04/25/24 17:09 upset stomach tramadol AdvReac Mild Vomiting Verified 04/25/24 17:09 Review of Systems Review of Systems: CONSTITUTIONAL: Denies body aches, fever, chills CARDIOVASCULAR: Denies chest pain, palpitations, or edema. RESPIRATORY: Denies cough or dyspnea. SKIN: Denies rash, itching, or wounds. MUSCULOSKELETAL: Reports right third finger and MCP joint pain. NEUROLOGIC: Denies headache, numbness, tingling, or weakness. PSYCH: Denies depression or anxiety. All systems reviewed & are unremarkable except as noted in HPI and below PMFSH Past Medical History Medical History Anxiety Asthma Diabetes mellitus Type 2 Hypertension Hypothyroidism Surgical History Surgical History H/O right wrist surgery 07/2020, carpal tunnel surgery History of bilateral salpingectomy 07/11/21 History of hysterectomy 07/11/21, [facility] History of tonsillectomy and adenoidectomy Family History Family History Father Hypertension Diabetes mellitus Mother Diabetes mellitus Hypertension Social History Social History Smoking packs per day: 0.5 Smoking cigarettes per day: 10.0 Years smoked: 24 Smoking pack-years: 12.00 Smoking status: Current every day smoker Tobacco type: cigarettes Alcohol intake: never Substance use: never Substance use type: does not use Living arrangements: with family Spiritual care concerns: No Comments At time of signature, I have reviewed and agree with nursing past medical, surgical, social and family history unless otherwise noted. Please see nursing chart for further information. There is no relevant family history pertinent to the presentin
== END 2024-04-25 18:01 | disposition home or self-care (01) ==
PROVIDERS: Emergency Provider Nurse Practitioner Family; PCP Nurse Practitioner Family
DX: M79.641 Pain in right hand (principal); M79.644 Pain in right finger(s); F17.210 Nicotine dependence, cigarettes, uncomplicated; J45.909 Unspecified asthma, uncomplicated; E11.9 Type 2 diabetes mellitus without complications; Z79.84 Long term (current) use of oral hypoglycemic drugs; I10 Essential (primary) hypertension; E03.9 Hypothyroidism, unspecified; Z79.82 Long term (current) use of aspirin; F41.9 Anxiety disorder, unspecified
CPT/HCPCS: 29130; 73130; 99213; G0463